=== PATIENT | female | born 1995 | race Two or more races ===

== ENCOUNTER 2016-11-11 14:34 | Emergency (ER) | payer MEDICAID ==
[~2016-11-11] VITALS: Ht 160 cm; Wt 68.9 kg
[~2016-11-11 14:34] MED LIST: FERR325T50 PO; PRENPAK56 OR
[2016-11-11 14:56] VITALS: BP 123/77
== END 2016-11-11 15:56 | disposition home or self-care (01) ==
LOC: ER 14:34
DX: N39.0 Urinary tract infection, site not specified (principal)
CPT/HCPCS: 81025

== ENCOUNTER 2022-05-06 15:17 | Emergency (ER) | payer MEDICAID ==
[~2022-05-06] VITALS: Ht 160 cm; Wt 78.7 kg
[2022-05-06 15:35] VITALS: BP 115/65
== END 2022-05-06 22:37 | disposition left against medical advice (07) ==
LOC: ER 15:17
DX: N93.9 Abnormal uterine and vaginal bleeding, unspecified (principal); Z53.21 Procedure and treatment not carried out due to patient leaving prior to being seen by health care provider

== ENCOUNTER 2022-05-31 21:00 | Observation (INO) | payer MEDICAID ==
[2022-05-31 22:28] LABS: Alcohol, Urine < 3.0 mg/dL (0-10); Amphetamine Screen, Urine NEGATIVE (NEGATIVE); Barbiturate Scree,Urine NEGATIVE (NEGATIVE); Benzodiazephine Screen, Urine NEGATIVE (NEGATIVE); Cannabinoid Screen, Urine POSITIVE (NEGATIVE); Cocaine Screen, Urine NEGATIVE (NEGATIVE); Opiate Scree,Urine NEGATIVE (NEGATIVE); Phencyclidine Screen, Urine NEGATIVE (NEGATIVE)
== END 2022-05-31 23:40 | disposition home or self-care (01) ==
LOC: ER 21:04 → LDRP 21:20
PROVIDERS: ADMIT Obstetrics & Gynecology; ATTEND Obstetrics & Gynecology
DX: O46.93 Antepartum hemorrhage, unspecified, third trimester (principal); O99.323 Drug use complicating pregnancy, third trimester; F12.90 Cannabis use, unspecified, uncomplicated; Z3A.28 28 weeks gestation of pregnancy; Z87.891 Personal history of nicotine dependence
CPT/HCPCS: 59025; 76805; 80307; 81002; G0378